=== PATIENT | male | born 1950 | race Caucasian/White ===

== ENCOUNTER → 2017-03-17 | Outpatient (CLI) | payer MEDICARE, OTHER ==
[~2017-03-17] MED LIST: ACYC400T PO; ALEV220T26 PO; ATOR80TA59 PO; IBUP-1114 PO; LISI10TA4 PO; NEXI1CAP4 PO; PROP80CA PO; VIAG100T PO; VITA100067 PO
[2017-03-17 09:55] LABS: ALBUMIN/GLOBULIN RATIO 1.54 (1.00-1.93); ALKALINE PHOSPHATASE 55 U/L (45-117); ALT/SGPT 28 U/L (12-78); ANION GAP 6 MEQ/L (8-16); AST/SGOT 21 U/L (15-37); BLOOD UREA NITROGEN 20 MG/DL (7-18); CALCIUM LEVEL 8.6 MG/DL (8.8-10.2); CARBON DIOXIDE LEVEL 29 MEQ/L (21-32); CHLORIDE LEVEL 105 MEQ/L (98-107); CHOLESTEROL LEVEL 183 MG/DL (<200); CREATININE FOR GFR 0.61 MG/DL (0.70-1.30); GLOMERULAR FILTRATION RATE > 60.0 (>49); GLUCOSE, FASTING 87 MG/DL (80-110); POTASSIUM SERUM 4.8 MEQ/L (3.5-5.1); SODIUM LEVEL 140 MEQ/L (136-145); TOTAL PROTEIN 6.6 GM/DL (6.4-8.2); TRIGLYCERIDES LEVEL 59 MG/DL (<150)
[2017-03-17 10:17] LABS: MEAN CORPUSCULAR HEMOGLOBIN 32.5 pg (27.0-33.0); MEAN CORPUSCULAR HGB CONC 34.3 g/dl (32.0-36.5); MEAN CORPUSCULAR VOLUME 94.8 fl (80.0-96.0); RED CELL DISTRIBUTION WIDTH 12.8 % (11.5-14.5); WHITE BLOOD COUNT 4.7 K/mm3 (4.0-10.0)
== END ==
LOC: M WUC 08:04
PROVIDERS: ATTEND Family Medicine
DX: E55.9 Vitamin D deficiency, unspecified (principal); I10 Essential (primary) hypertension

== ENCOUNTER → 2017-06-20 | Outpatient (CLI) | payer MEDICARE, OTHER ==
--- NOTE | 2017-06-20 20:13 | ECGEPIP ---
Stationary ECG Study [facility] Test Date: 2017-06-20 Pat Name: PAZ SEPULVEDA Department: Room: - Gender: M [employer] Developer: MAHSEH : [id number] Requested By: SANAZ Alberts Order Number: [id number] Reading MD: Nayeli Rose Measurements Intervals [place] Rate: 53 P: 48 AK: 165 QRS: 15 QRSD: 88 T: 33 QT: 403 QTc: 379 Interpretive Statements SINUS BRADYCARDIA NO PRIOR Electronically Signed On 06-20-2017 20:13:37 EDT by Nayeli Rose
== END ==
LOC: M EKG 07:10
PROVIDERS: ATTEND Anesthesiology
DX: I10 Essential (primary) hypertension (principal)

== ENCOUNTER 2017-06-27 06:01 | Day surgery (SDC) | payer MEDICARE, OTHER ==
[~2017-06-27] VITALS: Ht 172.7 cm; Wt 68.0 kg
[2017-06-27] MEDS ORDERED: LR 500 ML IV SCH (06:15)
[2017-06-27] MEDS ORDERED: BUPIVACAINE/EPIN 0.25% 30 ML VIAL As Ordered ONE (07:11)
[2017-06-27] MEDS ORDERED: LIDOCAINE 2% INJ 100 MG/5 ML SDV (FOR ANES.) As Ordered ONE (08:04)
[2017-06-27] MEDS ORDERED: fentaNYL 250 MCG/5 ML INJECTION (J3010) As Ordered ONE (08:04)
[2017-06-27] MEDS ORDERED: GLYCOPYRROLATE INJ 0.2 MG/ML 2 ML VIAL As Ordered ONE (08:04)
[2017-06-27] MEDS ORDERED: ONDANSETRON 4MG/2ML VIAL (J2405) As Ordered ONE (08:04)
[2017-06-27] MEDS ORDERED: ePHEDrine SULFATE 25 MG/5 ML(5MG/ML) SYRINGE As Ordered ONE (08:04)
[2017-06-27] MEDS ORDERED: ROCURONIUM BROMIDE 50 MG/5 ML VIAL/SYRINGE As Ordered ONE (08:04)
[2017-06-27] MEDS ORDERED: MIDAZOLAM INJ 2 MG/2 ML VIAL (J2250) As Ordered ONE (08:04)
[2017-06-27] MEDS ORDERED: NEOSTIGMINE 10 MG/10 ML VIAL (J2710) As Ordered ONE (08:04)
[2017-06-27] MEDS ORDERED: dexameTHASONE 4 MG/ML 1ML VIAL (J1100) As Ordered ONE (08:04)
[2017-06-27] MEDS ORDERED: KETOROLAC 60 MG/2 ML VIAL (J1885) As Ordered ONE (08:04)
[2017-06-27] MEDS ORDERED: PROPOFOL 200 MG/20 ML VIAL As Ordered ONE ×2 (08:04→09:12)
[2017-06-27] MEDS ORDERED: fentaNYL 100 MCG/2 ML INJECTION (J3010) IV PRN (09:30)
[2017-06-27] MEDS ORDERED: PERCOCET 5MG/325MG TAB PO PRN (09:30)
[2017-06-27] MEDS ORDERED: LABETALOL HCL 100 MG/20 ML VIAL IV SCH (09:30)
[2017-06-27] MEDS ORDERED: ONDANSETRON 4MG/2ML VIAL (J2405) IV PRN (09:30)
[2017-06-27] MEDS ORDERED: LR 1,000 ML IV SCH (09:30)
[2017-06-27 11:04] VITALS: BP 178/88
--- NOTE | 2017-08-06 14:21 | RO ---
DATE OF PROCEDURE: 06/27/2017 PREOPERATIVE DIAGNOSIS: Bilateral inguinal hernias. POSTOPERATIVE DIAGNOSIS: Bilateral inguinal hernias (direct). PROCEDURE: Laparoscopic bilateral inguinal hernia repair with 3DMax mesh (TEPP). SURGEON: Amador Moreland MD CURTAIN CUTTER: ANESTHESIA: General endotracheal anesthesia. ESTIMATED BLOOD LOSS (EBL): Minimal. FLUIDS: Crystalloid. BRIEF PROCEDURE SUMMARY: The patient was brought to the operating room, was given general anesthesia. After adequate anesthesia and preoperative antibiotics were given, the patient was prepped and draped in usual sterile fashion. Next, a periumbilical incision was made with skin knife. Blunt dissection was carried down to fascia. Fascia was incised longitudinally with electrocautery and the rectus muscle was retracted laterally, anteriorly. Finger dissection posterior to the rectus muscle was performed in the infraumbilical site and then, the balloon dissector was placed into the preperitoneal space. Next, this was insufflated under direct visualization, taking care to make sure the epigastrics were anteriorly and the peritoneum posteriorly. Once this was established, the balloon was desufflated and the stationary balloon was placed in the preperitoneal space and the preperitoneal space insufflated to 15 mm of pressure. Two 5 mm trocars were placed along the inferior umbilical area under direct visualization, and next, the right inguinal area was dissected out in the following manner. First loose areolar tissue on the backside of Chester's as well as on the pubis was taken down with hook cautery and then blunt dissection was carried down towards the internal ring, and on my way over, over the vessels was an obvious direct inguinal hernia and there was a hernia sac with the peritoneum/transverse abdominis muscle junction noticed and this was able to be mobilized quite nicely using some blunt dissection and minimal electrocautery. Once this was mobilized down and then off Chester's ligament as well, attention was turned lateral to the internal ring and dissection was carried on in this preperitoneal space. Peritoneum was able to be visualized and dissection continued all the way up to the cord structures where the peritoneum was followed. It did not become an internal hernia, and thus, it was able to be mobilized off the cord structures quite nicely at this point and followed to where the vas dove deep into the pelvis. Once this was adequately dissected, the left inguinal area was dissected out much in the same manner with some minimal blunt dissection as well as the hook cautery used to take down loose areolar tissue and the backside of pubis as well as Chester's ligament on the left-hand side, and this continued toward the direct hernia that was visible on this side as well, and once this was nicely identified and mobilized off the surrounding tissue, it seemed to have a fair bit more of fatty tissue that actually was overlying the vessels in this area and took a little bit more dissection near of the vas and the vessels to get this fatty tissue to be mobilized nicely to allow the mesh to sit in this area adequately. Once again, the peritoneum lateral to the internal ring was followed up towards the cord structures and then mobilized off medially down into the pelvis. Once all the dissection had been performed, two 3DMax mesh lytes were placed in the preperitoneal space, tacked in at the pubis on the Chester's ligament and then on the tail of mesh. Both meshes fit rather well, but did have some redundancy anteriorly and thus some tacks were placed along the rectus muscle anteriorly as well with AbsorbaTack. Once these appeared to be nicely in place, the preperitoneal space was desufflated under direct visualization and then all trocars were removed under direct visualization. #0 Vicryl was used close the incision at the umbilicus/fascia and all incisions were closed with #4-0 Vicryl. Steri-Strips and a dry sterile dressing was applied. The patient was awakened from anesthesia, extubated, brought to the recovery room awake, alert and hemodynamically stable. Sponge, needle counts correct times two.
== END 2017-06-27 12:00 | disposition home or self-care (01) ==
LOC: M SDC 06:01
PROVIDERS: ATTEND Surgery
DX: K40.00 Bilateral inguinal hernia, with obstruction, without gangrene, not specified as recurrent (principal); I10 Essential (primary) hypertension; E78.00 Pure hypercholesterolemia, unspecified; K21.9 Gastro-esophageal reflux disease without esophagitis; A80.9 Acute poliomyelitis, unspecified; R29.898 Other symptoms and signs involving the musculoskeletal system; Z79.899 Other long term (current) drug therapy; Z86.12 Personal history of poliomyelitis; Z86.69 Personal history of other diseases of the nervous system and sense organs
CPT/HCPCS: 49650; C1781; J0690; J1100; J1885; J2250; J2405; J2710; J3010

== ENCOUNTER 2018-07-02 08:16 | Day surgery (SDC) | payer MEDICARE, OTHER ==
[2018-07-02] MEDS ORDERED: PROPOFOL 200 MG/20 ML VIAL As Ordered ×2 (08:56→11:27)
[2018-07-02] MEDS ORDERED: LIDOCAINE 2% INJ 100 MG/5 ML SDV (FOR ANES.) As Ordered (08:56)
[2018-07-02] MEDS ORDERED: MIDAZOLAM INJ 2 MG/2 ML VIAL (J2250) As Ordered (08:56)
[2018-07-02] MEDS ORDERED: fentaNYL 250 MCG/5 ML INJECTION (J3010) As Ordered (08:56)
[2018-07-02] MEDS ORDERED: dexameTHASONE 4 MG/ML 1ML VIAL (J1100) As Ordered (08:56)
[2018-07-02] MEDS ORDERED: ROCURONIUM BROMIDE 50 MG/5 ML VIAL As Ordered (08:56)
[2018-07-02] MEDS ORDERED: ONDANSETRON 4MG/2ML VIAL (J2405) As Ordered (08:56)
[2018-07-02] MEDS ORDERED: LR 1,000 ML IV ×2 (09:45→12:15)
[2018-07-02] MEDS ORDERED: EPINEPHrine 1MG/ML INJ 30ML MD-VIAL As Ordered (10:18)
[2018-07-02] MEDS ORDERED: METHYLENE BLUE 0.5% (5MG/ML) 10 ML AMP (PROVAYBLUE)(Q9968 PER 1MG) As Ordered (10:18)
[2018-07-02] MEDS ORDERED: BACITRACIN OINT 30GM As Ordered (10:18)
[2018-07-02] MEDS: LIDOCAINE W/EPINEPHRINE 1% 20ML VIAL As Ordered (11:00)
[2018-07-02] MEDS ORDERED: METOCLOPRAMIDE INJ 10MG/2ML VIAL (J2765) IV (12:15)
[2018-07-02] MEDS ORDERED: fentaNYL 100 MCG/2 ML INJECTION (J3010) IV (12:15)
[2018-07-02] MEDS ORDERED: PERCOCET 5MG/325MG TAB PO (12:15)
[2018-07-02] MEDS ORDERED: MEPERIDINE INJ 25 MG/ML VIAL (J2175) IV (12:15)
[2018-07-02] MEDS ORDERED: ONDANSETRON 4MG/2ML VIAL (J2405) IV (12:15)
== END 2018-07-02 12:31 | disposition home or self-care (01) ==
LOC: M SDC 08:16
DX: C44.209 Unspecified malignant neoplasm of skin of left ear and external auricular canal (principal); I10 Essential (primary) hypertension; E78.00 Pure hypercholesterolemia, unspecified; K21.9 Gastro-esophageal reflux disease without esophagitis; R29.898 Other symptoms and signs involving the musculoskeletal system; R51 Headache; R06.83 Snoring; Z79.899 Other long term (current) drug therapy; Z86.12 Personal history of poliomyelitis; Z85.828 Personal history of other malignant neoplasm of skin
CPT/HCPCS: 11644

== ENCOUNTER → 2019-07-03 | Outpatient (CLI) | payer MEDICARE, OTHER ==
[~2019-07-03] MED LIST changes: +ACET-683 PO; +EXCETAB81 PO; +PERC5TAB12 PO; +TYLE1TAB5 PO
[2019-07-03 09:58] LABS: BASO % 0.8 % (0.0-1.0); EOS # 0.1 10^3/uL (0.0-0.5); HEMATOCRIT 43.7 % (42.0-52.0); HEMOGLOBIN 14.6 g/dl (13.5-17.5); LYMPH # 1.1 10^3/uL (1.5-5.0); LYMPH % 21.1 % (24.0-44.0); MEAN CORPUSCULAR HEMOGLOBIN 31.7 pg (27.0-33.0); MEAN CORPUSCULAR HGB CONC 33.4 g/dl (32.0-36.5); MEAN CORPUSCULAR VOLUME 94.8 fl (80.0-96.0); MONO # 0.6 10^3/uL (0.0-0.8); MONO % 10.9 % (0.0-5.0); NEUTROPHILS # 3.3 10^3/uL (1.5-8.5); NEUTROPHILS % 64.6 % (36.0-66.0); PLATELET COUNT, AUTOMATED 230 10^3/uL (150-450); RED BLOOD COUNT 4.61 10^6/uL (4.30-6.10); WHITE BLOOD COUNT 5.1 10^3/uL (4.0-10.0)
[2019-07-03 10:23] LABS: ALBUMIN 3.8 GM/DL (3.2-5.2); ALT/SGPT 29 U/L (12-78); BILIRUBIN,TOTAL 1.1 MG/DL (0.2-1.0); BLOOD UREA NITROGEN 16 MG/DL (7-18); CALCIUM LEVEL 8.9 MG/DL (8.8-10.2); CARBON DIOXIDE LEVEL 29 MEQ/L (21-32); CHLORIDE LEVEL 105 MEQ/L (98-107); CHOLESTEROL LEVEL 175 MG/DL (<200); CHOLESTEROL RISK RATIO 3.301 (<5); CREATININE FOR GFR 0.57 MG/DL (0.70-1.30); GLOMERULAR FILTRATION RATE > 60.0 (>42); GLUCOSE, FASTING 92 MG/DL (70-100); HDL CHOLESTEROL 53 MG/DL (>40); LDL CHOLESTEROL 103 MG/DL (<100); NON-HDL-C 122 MG/DL; POTASSIUM SERUM 4.5 MEQ/L (3.5-5.1); SODIUM LEVEL 140 MEQ/L (136-145); TOTAL PROTEIN 6.6 GM/DL (6.4-8.2); TRIGLYCERIDES LEVEL 95 MG/DL (<150)
[2019-07-03 10:34] LABS: TOTAL 25(OH) VITAMIN D 39.1 NG/ML (30.0-100.0)
== END ==
LOC: M WUC 08:08
PROVIDERS: ATTEND Family Medicine
DX: E55.9 Vitamin D deficiency, unspecified (principal); I10 Essential (primary) hypertension

== ENCOUNTER 2019-07-07 11:43 | Emergency (ER) | payer MEDICARE, OTHER ==
[~2019-07-07] VITALS: Ht 172.7 cm; Wt 70.4 kg
[~2019-07-07 11:43] MED LIST changes: -ACET-683 PO; -PERC5TAB12 PO
[2019-07-07] MEDS ORDERED: LIDOCAINE 5% (LIDODERM) PATCH TD ONE (12:45)
[2019-07-07] MEDS ORDERED: ACETAMINOPHEN 325 MG TAB PO ONE (12:45)
--- NOTE | 2019-07-07 14:15 | REP ---
Pelvis bilateral hip series: Five views. History: Injury. Findings: AP view of the pelvis shows an intact bony pelvic ring. There is a levoconvex thoracolumbar scoliosis. There is developmental or positional asymmetry of the pelvis but no fracture is seen. No sacral fracture is noted. AP and frog-leg views of the left hip show smooth rounded femoral head and intact hip joint space. No left hip fracture is seen. On the right however there is a fracture through the greater trochanter which does not appear to be displaced. No femoral neck or intertrochanteric fracture is seen. No subtrochanteric fracture is appreciated. Impression: Greater trochanteric fracture right hip. No other fracture seen. Developmental asymmetry in the pelvis. Scoliosis. Electronically Signed by Arvind Jacob MD 07/07/2019 02:25 P
--- NOTE | 2019-07-07 14:22 | REP ---
CT right hip without contrast: History: Right greater trochanteric hip fracture. Injury in a fall. Findings: There is a moderate right hip joint effusion consistent with hemarthrosis. There is a slightly comminuted fracture of the greater trochanter of the right hip as seen on the radiographs. On CT images, this fracture line does extend into the posterolateral aspect of the femoral neck. There is some osteoarthritic narrowing of the hip joint space mild in degree. Femoral head is smooth and rounded. There is some soft tissue contusion. 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 There is a left-sided hydrocele noted incidentally in the scrotum. Impression: Fracture of the proximal femur involving the greater trochanter but extending cranially into the superolateral aspect of the femoral neck. There is a moderate hemarthrosis in the joint. 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 Electronically Signed by Arvind Jacob MD 07/07/2019 02:26 P
[2019-07-07] MEDS ORDERED: ACET-683 PO (14:58)
[2019-07-07] MEDS ORDERED: PERC5TAB12 PO (15:04)
[2019-07-07 15:15] VITALS: BP 147/74
== END 2019-07-07 15:27 | disposition home or self-care (01) ==
LOC: M ED 11:43
DX: S72.111A Displaced fracture of greater trochanter of right femur, initial encounter for closed fracture (principal); W19.XXXA Unspecified fall, initial encounter; Y92.010 Kitchen of single-family (private) house as the place of occurrence of the external cause; I10 Essential (primary) hypertension; B91 Sequelae of poliomyelitis; Z87.891 Personal history of nicotine dependence; Z79.899 Other long term (current) drug therapy

== ENCOUNTER → 2019-11-06 | Outpatient (CLI) | payer MEDICARE, OTHER ==
[~2019-11-06] MED LIST changes: +ACET-683 PO; +PERC5TAB12 PO
--- NOTE | 2019-11-06 17:24 | REPVR ---
PROCEDURE INFORMATION: Exam: MR Head Without Contrast Exam date and time: 11/06/2019 7:38 AM Age: 69 years old Clinical indication: Other: Unsteady, headaches, pressure HX of polio; Additional info: Chronic daily headache TECHNIQUE: Imaging protocol: MR of the head without contrast. COMPARISON: No relevant prior studies available. FINDINGS: Brain: Confluent foci of T2 lengthening are demonstrated in the periventricular white matter consistent with mild age-related small vessel gliosis. Mild global parenchymal volume loss consistent with patient age. Ventricles: The degree of ventricular dilatation is normal for age and/or degree of atrophy present. Bones/joints: Unremarkable. Soft tissues: Unremarkable. Sinuses: Retention cyst right maxillary sinus. Mastoid air cells: Normal as visualized. No mastoid effusion. Orbits: Unremarkable. IMPRESSION: 1. Confluent foci of T2 lengthening are demonstrated in the periventricular white matter consistent with mild age-related small vessel gliosis. 2. The degree of ventricular dilatation is normal for age and/or degree of atrophy present. Electronically signed by: Vinay Pendleton On 11/06/2019 17:23:32 PM
== END ==
LOC: M RAD 06:29
PROVIDERS: ATTEND Psychiatry & Neurology Neurology
DX: R51 Headache (principal)

== ENCOUNTER → 2022-05-03 | Outpatient (CLI) | payer MEDICARE, OTHER ==
[~2022-05-03] MED LIST changes: +ACYC1TAB PO; -ACYC400T PO; +LISI10TA22 PO; -LISI10TA4 PO
[2022-05-03 10:05] LABS: BASO % 0.9 % (0.0-1.0); EOS % 0.7 % (0.0-3.0); HEMATOCRIT 44.7 % (42.0-52.0); HEMOGLOBIN 14.5 g/dl (13.5-17.5); LYMPH % 21.3 % (24.0-44.0); MEAN CORPUSCULAR HEMOGLOBIN 30.7 pg (27.0-33.0); MEAN CORPUSCULAR HGB CONC 32.4 g/dl (32.0-36.5); MEAN CORPUSCULAR VOLUME 94.7 fl (80.0-96.0); MONO # 0.4 10^3/uL (0.0-0.8); MONO % 9.6 % (2.0-8.0); NEUTROPHILS # 3.1 10^3/uL (1.5-8.5); NEUTROPHILS % 67.1 % (36.0-66.0); PLATELET COUNT, AUTOMATED 236 10^3/uL (150-450); RED BLOOD COUNT 4.72 10^6/uL (4.30-6.10); WHITE BLOOD COUNT 4.6 10^3/uL (4.0-10.0)
[2022-05-03 10:52] LABS: ALBUMIN 3.9 GM/DL (3.2-5.2); ALT/SGPT 23 U/L (12-78); BILIRUBIN,TOTAL 0.9 MG/DL (0.2-1.0); BLOOD UREA NITROGEN 13 MG/DL (7-18); CALCIUM LEVEL 9.4 MG/DL (8.8-10.2); CARBON DIOXIDE LEVEL 28 MEQ/L (21-32); CHLORIDE LEVEL 105 MEQ/L (98-107); CHOLESTEROL LEVEL 185 MG/DL (<200); CHOLESTEROL RISK RATIO 3.303 (<5); CREATININE FOR GFR 0.54 MG/DL (0.70-1.30); GLOMERULAR FILTRATION RATE > 60.0 (>42); GLUCOSE, FASTING 94 MG/DL (70-100); HDL CHOLESTEROL 56 MG/DL (>40); LDL CHOLESTEROL 119 MG/DL (<100); NON-HDL-C 129 MG/DL; SODIUM LEVEL 138 MEQ/L (136-145); TOTAL PROTEIN 6.4 GM/DL (6.4-8.2); TRIGLYCERIDES LEVEL 51 MG/DL (<150)
[2022-05-03 11:37] LABS: TOTAL 25(OH) VITAMIN D 46.2 NG/ML (30.0-100.0)
== END ==
LOC: M WUC 08:17
PROVIDERS: ATTEND Family Medicine
DX: Z00.00 Encounter for general adult medical examination without abnormal findings (principal); E55.9 Vitamin D deficiency, unspecified; Z79.899 Other long term (current) drug therapy

== ENCOUNTER 2023-04-26 11:33 | Day surgery (SDC) | payer MEDICARE, OTHER ==
[~2023-04-26] VITALS: Ht 172.7 cm; Wt 63.0 kg
[~2023-04-26 11:33] MED LIST changes: +IBUP200C34 PO; +MM S100C PO; +NORT10CA2 PO; +NS 1,000 ML IV ONE; +VITA100093 PO
[2023-04-26 13:07] VITALS: TEMP 97.4
[2023-04-26 13:35] VITALS: BP 159/79; O2SAT 99
== END 2023-04-26 13:43 | disposition home or self-care (01) ==
LOC: M OPP 11:33
PROVIDERS: ATTEND Internal Medicine Gastroenterology
DX: Z12.11 Encounter for screening for malignant neoplasm of colon (principal); D12.8 Benign neoplasm of rectum; K64.0 First degree hemorrhoids; Z79.02 Long term (current) use of antithrombotics/antiplatelets; Z79.1 Long term (current) use of non-steroidal anti-inflammatories (NSAID); Z79.899 Other long term (current) drug therapy

== ENCOUNTER → 2024-06-11 | Outpatient (CLI) | payer MEDICARE, OTHER ==
[~2024-06-11] MED LIST changes: -NS 1,000 ML IV ONE
[2024-06-11 10:22] LABS: BASO # 0.1 10^3/uL (0.0-0.2); EOS # 0.1 10^3/uL (0.0-0.5); EOS % 1.4 % (0.0-3.0); HEMATOCRIT 42.9 % (42.0-52.0); HEMOGLOBIN 14.6 g/dl (13.5-17.5); LYMPH # 1.2 10^3/uL (1.5-5.0); LYMPH % 25.2 % (24.0-44.0); MEAN CORPUSCULAR HEMOGLOBIN 32.5 pg (27.0-33.0); MEAN CORPUSCULAR VOLUME 95.5 fl (80.0-96.0); MONO # 0.4 10^3/uL (0.0-0.8); MONO % 8.5 % (2.0-8.0); NEUTROPHILS # 3.1 10^3/uL (1.5-8.5); NEUTROPHILS % 63.3 % (36.0-66.0); PLATELET COUNT, AUTOMATED 230 10^3/uL (150-450); RED BLOOD COUNT 4.49 10^6/uL (4.30-6.10); WHITE BLOOD COUNT 4.9 10^3/uL (4.0-10.0)
[2024-06-11 10:26] LABS: ALKALINE PHOSPHATASE 50 U/L (46-116); ALT/SGPT 25 U/L (7.0-40); AST/SGOT 20 U/L (<34); BILIRUBIN,TOTAL 1.4 MG/DL (0.3-1.2); BLOOD UREA NITROGEN 17 MG/DL (9-23); CALCIUM LEVEL 9.1 MG/DL (8.3-10.6); CARBON DIOXIDE LEVEL 30 MMOL/L (20-31); CHLORIDE LEVEL 103 MMOL/L (98-107); CHOLESTEROL LEVEL 181 MG/DL (<200); CHOLESTEROL RISK RATIO 3.35 (<5); CREATININE FOR GFR 0.59 MG/DL (0.70-1.30); GLOMERULAR FILTRATION RATE > 60.0 (>42); GLUCOSE, FASTING 102 MG/DL (74-106); HDL CHOLESTEROL 53.9 MG/DL (>40); LDL CHOLESTEROL 108.7 MG/DL (<100); NON-HDL-C 127.1 MG/DL; POTASSIUM SERUM 4.4 MMOL/L (3.5-5.1); SODIUM LEVEL 136 MMOL/L (136-145); TOTAL PROTEIN 6.6 G/DL (5.7-8.2); TRIGLYCERIDES LEVEL 92 MG/DL (<150)
[2024-06-11 10:34] LABS: TOTAL 25(OH) VITAMIN D 39.1 NG/ML (20.0-100.0)
== END ==
LOC: M WUC 08:08
PROVIDERS: ATTEND Family Medicine
DX: E55.9 Vitamin D deficiency, unspecified (principal); I10 Essential (primary) hypertension

== ENCOUNTER → 2025-06-03 | Outpatient (CLI) | payer MEDICARE, OTHER ==
[~2025-06-03] MED LIST changes: +ACYC-438 PO; -ACYC1TAB PO
[2025-06-03 12:49] LABS: BASO # 0.1 10^3/uL (0.0-0.2); BASO % 0.8 % (0.0-1.0); EOS # 0.1 10^3/uL (0.0-0.5); EOS % 0.8 % (0.0-3.0); LYMPH # 1.4 10^3/uL (1.5-5.0); LYMPH % 23.4 % (24.0-44.0); MONO # 0.5 10^3/uL (0.0-0.8); MONO % 8.7 % (2.0-8.0); NEUTROPHILS # 4.0 10^3/uL (1.5-8.5); NEUTROPHILS % 66.0 % (36.0-66.0); PLATELET COUNT, AUTOMATED 272 10^3/uL (150-450)
[2025-06-03 12:51] LABS: ALT/SGPT 22 U/L (7.0-40); AST/SGOT 23 U/L (<34); CALCIUM LEVEL 9.5 MG/DL (8.3-10.6); CARBON DIOXIDE LEVEL 29 MMOL/L (20-31); CHLORIDE LEVEL 100 MMOL/L (98-107); CHOLESTEROL LEVEL 169 MG/DL (<200); CHOLESTEROL RISK RATIO 2.96 (<5); CREATININE FOR GFR 0.62 MG/DL (0.70-1.30); GLOMERULAR FILTRATION RATE > 90.0 (>42); LDL CHOLESTEROL 89.8 MG/DL (<100); NON-HDL-C 112.0 MG/DL; POTASSIUM SERUM 5.2 MMOL/L (3.5-5.1); SODIUM LEVEL 136 MMOL/L (136-145); TRIGLYCERIDES LEVEL 111 MG/DL (<150)
[2025-06-03 12:52] LABS: TOTAL 25(OH) VITAMIN D 50.6 NG/ML (20.0-100.0)
== END ==
LOC: M WUC 08:15
PROVIDERS: ATTEND Family Medicine
DX: E55.9 Vitamin D deficiency, unspecified (principal); I10 Essential (primary) hypertension